=== PATIENT | female | born 1955 | race Caucasian/White ===

== ENCOUNTER → 2019-09-16 09:23 | Outpatient (CLI) | payer BC, SELFPAY ==
--- NOTE | ~2019-09-16 | MMUS_ITS ---
EXAMINATION: MM diagnostic fabiano LT w robin, US breast LT limited HISTORY: Six-month follow-up for probably benign left breast masses TECHNIQUE: Craniocaudal, mediolateral, and mediolateral oblique 3-D tomosynthesis images of the left breast were performed and synthetic 2-D images were generated. Spot compression views are also obtain ed. CAD analysis was submitted and interpreted. High resolution limited left breast ultrasound was pe rformed. COMPARISON: 02/10/2019, 04/25/2017, 04/18/2015, 08/20/2013 FINDINGS: MAMMOGRAPHIC FINDINGS: There is a stable 7 mm round, circumscribed, equal density mass in the middle third of the inner [address] at the 9:00 location 6.5 cm from the nipple. There also appear to be additional obscured equal and low-density masses in the upper inner breast. No suspicious calcification or architectural distortio n are identified. ULTRASOUND: There is a stable 7 mm cyst at the 9:00 location 6 cm from the nipple corresponding to the mammograph ic finding in question. Also seen are several oval, circumscribed, parallel, anechoic and hypoechoic masses in the upper outer quadrant of the breast. An area previously described at the 9:00 location n ear the nipple is now seen at the 8:00 location 3 cm from the nipple. On some images, there appears t o be a small hypoechoic mass however, cine clips, this area appears to somewhat blend with the backgr ound fibroglandular tissue. IMPRESSION: 1. Probably benign left breast findings. 2. Recommend 6 month follow-up left diagnostic mammogram and ultrasound. BI-RADS category 3, probably benign findings. Reviewed, dictated and finalized at location A. IMPRESSION: 1. Probably benign left breast findings. 2. Recommend 6 month follow-up left diagnostic mammogram and ultrasound. BI-RADS category 3, probably benign findings.
== END ==
PROVIDERS: Visit Provider Obstetrics & Gynecology
DX: R92.8 Other abnormal and inconclusive findings on diagnostic imaging of breast (principal)
CPT/HCPCS: 76642; 77061; 77065; G0279

== ENCOUNTER → 2020-03-21 08:21 | Outpatient (CLI) | payer BC, SELFPAY ==
--- NOTE | ~2020-03-21 | MMUS_ITS ---
EXAMINATION: MM diagnostic fabiano LT w robin, US breast LT complete HISTORY: Probably benign left breast findings reported on 09/16/2019 diagnostic left digital mammogram and left Limited breast ultrasound examination TECHNIQUE: Full field and spot 3-D tomosynthesis images of the left breast were performed and synthet ic 2-D images were generated. CAD analysis was submitted and interpreted. High resolution complete le ft breast ultrasound was performed. COMPARISON: 09/16/2019 diagnostic left digital mammogram and limited left breast ultrasound examinatio n BREAST PARENCHYMAL COMPOSITION: The breasts are heterogeneously dense, which may obscure small masses . FINDINGS: MAMMOGRAPHIC FINDINGS: Numerous benign-appearing microcalcifications are scattered throughout the left breast. There are occasional subcentimeter circumscribed low-density opacities, the largest approximately 9 m m, situated in the upper outer left breast (MLO Tomosynthesis image 30/81). Complete left breast ultr asound examination was performed. ULTRASOUND: There are multiple simple and septated cysts scattered in the left breast, largest situated at 12:00 3 cm from the nipple, measuring up to 1.2 cm maximal dimension, with through transmission and posteri or enhancement. At 10:00 6.5 cm from the nipple there is a probable septated cyst, without suspicious shadowing. 6 mo nth follow-up ultrasound of this area is recommended. No suspicious mass or shadowing is noted otherwise. IMPRESSION: 1. Probable benign septated cysts at 10:00 6.5 cm from nipple 2. Six-month targeted left breast ultrasound at 10:00 6.5 cm from the nipple is recommended. BI-RADS category 3, probably benign findings. Reviewed, dictated and finalized at location A. 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 Probable benign septated cysts at 10:00 6.5 cm from nipple 2. Six-month targeted left breast ultrasound at 10:00 6.5 cm from the nipple is recommended. BI-RADS category 3, probably benign findings.
== END ==
PROVIDERS: Visit Provider Obstetrics & Gynecology
DX: N63.20 Unspecified lump in the left breast, unspecified quadrant (principal); R92.8 Other abnormal and inconclusive findings on diagnostic imaging of breast
CPT/HCPCS: 76641; 77061; 77065; G0279

== ENCOUNTER → 2020-06-30 17:49 | Outpatient (CLI) | payer BC, SELFPAY ==
--- NOTE | ~2020-06-30 | MM_ITS ---
EXAMINATION: MM screening fabaino BI w robin HISTORY: Screening mammogram TECHNIQUE: Craniocaudal and mediolateral oblique 3-D tomosynthesis images were obtained and synthetic 2-D images were generated. CAD analysis was submitted and interpreted. COMPARISON: 03/21/2020 diagnostic left digital mammogram and complete left breast ultrasound examinati on 09/16/2019 diagnostic left digital mammogram and limited left breast ultrasound 03/06/2019 limited left breast ultrasound 02/10/2019, 04/25/2017, 04/18/2015, 08/20/2013 bilateral digital screening mammogram examination BREAST PARENCHYMAL COMPOSITION: The breasts are heterogeneously dense, which may obscure small masses . FINDINGS: Numerous punctate benign microcalcifications are scattered in both breasts. There is no miracle dence of suspicious mass, calcification, or architectural distortion to suggest malignancy in either breast. There has been no suspicious interval change. IMPRESSION: 1. No mammographic evidence of malignancy. 2. Recommend routine screening mammography in one year. BI-RADS Category 2: Benign finding(s). Reviewed, dictated and finalized at location A.
== END ==
PROVIDERS: Visit Provider Obstetrics & Gynecology
DX: Z12.31 Encounter for screening mammogram for malignant neoplasm of breast (principal)
CPT/HCPCS: 77063; 77067

== ENCOUNTER → 2021-10-05 15:35 | Outpatient (CLI) | payer BC, SELFPAY ==
--- NOTE | ~2021-10-05 | MM_ITS ---
EXAMINATION: MM screening fabiano BI w robin HISTORY: Screening TECHNIQUE: Craniocaudal and mediolateral oblique 3-D tomosynthesis images were obtained and synthetic 2-D images were generated. CAD analysis was submitted and interpreted. COMPARISON: Comparison to multiple prior studies sequentially, with oldest reviewed study dated 04/18. BREAST PARENCHYMAL COMPOSITION: The breasts are heterogeneously dense, which may obscure small masses . FINDINGS: The right breast is stable without evidence for malignancy. There are developing left breas t masses in the upper central aspect of the left breast. There are scattered benign-appearing bilater al breast calcifications. IMPRESSION: 1. Developing left breast masses, upper central aspect. 2. Additional spot compression and mediolateral views with possible follow-up breast ultrasound recom mended. BI-RADS Category 0: Incomplete: Needs additional imaging evaluation. Reviewed, dictated and finalized at location A. IMPRESSION: 1. Developing left breast masses, upper central aspect. 2. Additional spot compression and mediolateral views with possible follow-up b reast ultrasound recommended. BI-RADS Category 0: Incomplete: Needs additional imaging evaluation.
== END ==
PROVIDERS: PCP Nurse Practitioner Family; Visit Provider Obstetrics & Gynecology
DX: Z12.31 Encounter for screening mammogram for malignant neoplasm of breast (principal); R92.8 Other abnormal and inconclusive findings on diagnostic imaging of breast
CPT/HCPCS: 77063; 77067

== ENCOUNTER → 2021-10-19 08:19 | Outpatient (CLI) | payer BC, SELFPAY ==
--- NOTE | ~2021-10-19 | MMUS_ITS ---
EXAMINATION: MM diagnostic fabiano LT w robin, US breast LT complete HISTORY: Developing left breast masses, upper central aspect reported on 10/2021 screening mammogram examination TECHNIQUE: Additional 3-D tomosynthesis images of were performed and synthetic 2-D images were genera yolette. CAD analysis was submitted and interpreted. High resolution breast ultrasound was performed. COMPARISON: 10/05/2021 bilateral screening mammogram FINDINGS: MAMMOGRAPHIC FINDINGS: 2 contiguous circumscribed opacities with halo sign are noted at the upper mid breast, measuring appr oximately 10 and 19 mm. Additional masses may be obscured by the heterogeneously dense stroma. Therefore complete left breast ultrasound was performed. ULTRASOUND: 12:00 2 cm from nipple: 10 x 18 mm simple cyst and 6 x 10 mm simple cyst with through transmission po sterior enhancement are noted. 1:00 2 cm from nipple: 5.2 x 5.6 cm simple cyst 9:00 6 cm from nipple: Septated 4.5 mm cyst with through transmission posterior enhancement No suspicious mass or shadowing is detected. IMPRESSION: 1. Benign findings 2. Routine mammographic screening is recommended BI-RADS Category 2: Benign finding(s). Reviewed, dictated and finalized at location A. IMPRESSION: 1. Benign findings 2. Routine mammographic screening is recommended BI-RADS Category 2: Benign finding(s).
== END ==
PROVIDERS: PCP Nurse Practitioner Family; Visit Provider Obstetrics & Gynecology
DX: N63.20 Unspecified lump in the left breast, unspecified quadrant (principal); R92.8 Other abnormal and inconclusive findings on diagnostic imaging of breast
CPT/HCPCS: 76641; 77061; 77065; G0279

== ENCOUNTER → 2022-10-04 13:56 | Outpatient (CLI) | payer OTHER, SELFPAY ==
--- NOTE | ~2022-10-04 | MM_ITS ---
EXAMINATION: MM screening fabiano BI w robin HISTORY: Screening mammogram TECHNIQUE: Craniocaudal and mediolateral oblique 3-D tomosynthesis images were obtained and synthetic 2-D images were generated. CAD analysis was submitted and interpreted. COMPARISON: 10/19/2021 diagnostic left mammogram and complete left breast ultrasound 10/2021, 06/30/2020 bilateral screening mammogram BREAST PARENCHYMAL COMPOSITION: The breasts are heterogeneously dense, which may obscure small masses . Within the FINDINGS: Multiple bilateral benign microcalcifications are noted. Stable low-density circumscribed approximately 1.8 cm opacity at mid depth in the upper central left breast with halo sign, consistent with simple cyst previously documented. There is no evidence of suspicious mass, calcification, or architectural distortion to suggest malig [place]on in either breast. There has been no suspicious interval change. IMPRESSION: 1. Benign findings; no mammographic evidence of malignancy 2. Recommend routine screening mammography in one year. BI-RADS Category 2: Benign finding(s). Reviewed, dictated and finalized at location A.
== END ==
PROVIDERS: PCP Obstetrics & Gynecology; Visit Provider Obstetrics & Gynecology
DX: Z12.31 Encounter for screening mammogram for malignant neoplasm of breast (principal)
CPT/HCPCS: 77063; 77067

== ENCOUNTER 2024-01-13 11:56 | Outpatient (CLI) | payer OTHER, SELFPAY ==
--- NOTE | ~2024-01-13 | MM_ITS ---
EXAMINATION: MM screening [facility] BI w robin HISTORY: Screening mammogram TECHNIQUE: Craniocaudal and mediolateral oblique 3-D tomosynthesis images were obtained and synthetic 2-D images were generated. CAD analysis was submitted and interpreted. COMPARISON: 10/04/2022, 10/05/2021, 06/30/2020 BREAST PARENCHYMAL COMPOSITION:Not Dense. There are scattered areas of fibroglandular density. FINDINGS: No suspicious mass, calcification, or architectural distortion are identified in either joao ast to suggest malignancy. There has been no suspicious interval change. IMPRESSION: No mammographic evidence of malignancy. Recommend routine screening mammography in one year. BI-RADS Category 1: Negative Reviewed, dictated and finalized at location . 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
== END 2024-01-13 11:57 | disposition home or self-care (01) ==
LOC: MICIMG 11:56
PROVIDERS: PCP Nurse Practitioner Family; Visit Provider Obstetrics & Gynecology
DX: Z12.31 Encounter for screening mammogram for malignant neoplasm of breast (principal)
CPT/HCPCS: 77063; 77067

== ENCOUNTER 2025-01-14 10:49 | Outpatient (CLI) | payer OTHER, SELFPAY ==
--- NOTE | ~2025-01-14 | MM_ITS ---
EXAMINATION: MM screening fabiano BI w robin HISTORY: Screening TECHNIQUE: Craniocaudal and mediolateral oblique 3-D tomosynthesis images were obtained and synthetic 2-D images were generated. CAD analysis was submitted and interpreted. COMPARISON: Comparison to multiple prior studies sequentially, with oldest reviewed study dated 06/30/2020. BREAST PARENCHYMAL COMPOSITION: Dense: The breasts are heterogeneously dense, which may obscure small masses FINDINGS: There is no evidence of suspicious mass, calcification, or architectural distortion to suggest malignancy in either breast. There has been no suspicious interval change. IMPRESSION: 1. No mammographic evidence of malignancy. 2. Recommend routine screening mammography in one year. BI-RADS Category 1: Negative Reviewed, dictated and finalized at location B. 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
== END 2025-01-14 10:50 | disposition home or self-care (01) ==
LOC: MICIMG 10:50
PROVIDERS: PCP Nurse Practitioner Family; Visit Provider Obstetrics & Gynecology
DX: Z12.31 Encounter for screening mammogram for malignant neoplasm of breast (principal)
CPT/HCPCS: 77063; 77067